=== PATIENT | male | born 1955 | race Caucasian/White ===

== ENCOUNTER 2016-09-29 10:55 | Emergency (ER) | payer OTHER ==
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
[~2016-09-29 10:55] MED LIST: AFRIN3 ML; LEVAQUIN750 M1 PO; ZOFRAN PO
[2016-09-29 13:11] LABS: BASOPHIL% 0.6 % (0-2.5); EOSINOPHIL% 0.5 % (0.0-7.0); HEMATOCRIT 49.5 % (38.0-50.0); HEMOGLOBIN 16.4 gm/dL (13.0-16.0); LYMPHOCYTE# 1.3 X10e3 (1.0-3.5); LYMPHOCYTE% 19.8 % (17.0-45.0); MEAN CELL VOLUME 94.9 FL (83-96); MEAN CORPUSCULAR HEMOGLOBIN 31.4 PG (28-34); MEAN CORPUSCULAR HGB CONC 33.1 g/dL (30-36); MEAN PLATELET VOLUME 7.3 FL (6.5-11.5); MONOCYTE# 0.7 X10e3 (0-1.0); MONOCYTE% 11.3 % (3.0-12.0); NEUTROPHIL# 4.3 X10e3 (1.5-7.1); NEUTROPHIL% 67.8 % (40-75); PLATELET COUNT 275 X10e3 (140-420); RED BLOOD COUNT 5.22 X10e (3.90-5.60); RED CELL DISTRIBUTION WIDTH 13.5 % (11.0-15.5); WHITE BLOOD COUNT 6.4 X10e3 (4.0-10.5)
[2016-09-29 13:19] LABS: DIFF IND NO
[2016-09-29 14:03] LABS: ALBUMIN SERUM 4.3 g/dL (3.5-5.0); BILIRUBIN, DIRECT 0.1 mg/dL (0.0-0.2); BILIRUBIN,INDIRECT 0.6 mg/dL (0.0-0.9); BILIRUBIN,TOTAL 0.7 mg/dL (0.2-2.0); BUN/CREATININE RATIO 16.66; CALCIUM SERUM 9.5 mg/dL (8.4-10.2); CREATININE SERUM 0.9 mg/dL (0.6-1.4); GLOM FILT RATE Estimated 92.5 mL/min (>60); POTASSIUM 4.4 mmol/L (3.5-5.1); PROTEIN TOTAL SERUM 8.1 g/dL (6.0-8.3)
[2016-10-20] MEDS ORDERED: AMANTADINE HCL100 MG PO (08:34)
[2016-10-20] MEDS ORDERED: GABAPENTIN300 MG PO (08:36)
[2016-10-20] MEDS ORDERED: CARBIDOPA-LEVO1 EAC5 PO (08:36)
[2016-10-20] MEDS ORDERED: AMLODIPINE BESYL5 MG PO (08:36)
== END 2016-09-29 17:00 | disposition home or self-care (01) ==
LOC: CED 10:55
PROVIDERS: Emergency Medicine
DX: K40.90 Unilateral inguinal hernia, without obstruction or gangrene, not specified as recurrent (principal); I10 Essential (primary) hypertension; G20 Parkinson's disease
CPT/HCPCS: 36415; 74177; 80048; 80076; 82150; 83690; 85025; 96374; 96375; 99284; J2270; J2405; Q9967

== ENCOUNTER → 2016-10-20 | Outpatient (CLI) | payer OTHER ==
[~2016-10-20] MED LIST changes: +AMANTADINE HCL100 MG PO; +AMLODIPINE BESYL5 MG PO; +CARBIDOPA-LEVO1 EAC5 PO; +GABAPENTIN300 MG PO
--- NOTE | ~2016-10-20 | EKG ---
PATIENT: RICA RODRIGUEZ UNIT #: [id number] Ventricular Rate: 99 BPM Atrial Rate: 100 BPM QRS Duration: 82 ms Q-T Interval: 348 ms QTC Calculation(Bezet): 446 ms Calculated R Menlo: 23 degrees Calculated T [place]: 15 degrees Diagnosis Line: Sinus tachycardia Diagnosis Line: Poor data quality Diagnosis Line: Nonspecific ST abnormality Diagnosis Line: Borderline ECG Diagnosis Line: No previous ECGs available Diagnosis Line: Confirmed by AIDAN WANG MD ([id number]) on 10/22/2016 Diagnosis Line: 8:14:05 AM INTERPRETING MD: KATHLEEN BOOTH
== END | disposition home or self-care (01) ==
LOC: CAMB 07:57
DX: Z01.810 Encounter for preprocedural cardiovascular examination (principal); K40.20 Bilateral inguinal hernia, without obstruction or gangrene, not specified as recurrent; K43.9 Ventral hernia without obstruction or gangrene
CPT/HCPCS: 93005

== ENCOUNTER → 2016-10-27 | Day surgery (SDC) | payer OTHER ==
--- NOTE | ~2016-10-27 | OR ---
Unit #: [id number] #: [id number] Patient: RICA RODRIGUEZ [id number] [address] [place], [place] [address] [id number] O MR#: [id number] NAME: RICA RODRIGUEZ ROOM: Date of Procedure: 10/27/2016 Admission Date: 10/27/2016 Surgeon: Chin Laughlin Jr., M.D. : 1955 Attending Physician: Chin Laughlin Jr., M.D. Primary Care Physician: [facility] OPERATIVE REPORT INDICATION FOR PROCEDURE The patient is a 61-year-old white male, recently presented to the office with evidence of bilateral inguinal hernias. He also was noted to have a hernia in the upper midline of the abdomen and was brought in this time for repair of all 3 of these laparoscopically. The patient understands the procedure including the risks, including that of recurrence, infection, and chronic pain, and bleeding and consents. PREOPERATIVE DIAGNOSES Bilateral inguinal hernias with an upper midline ventral hernia. POSTOPERATIVE DIAGNOSIS Bilateral inguinal hernias with an upper midline ventral hernia noting the bilateral inguinal hernias being direct. There were several deep small defects in the upper midline. ANESTHESIA General with endotracheal intubation and 0.5% Marcaine with epinephrine locally. PROCEDURE PERFORMED Bilateral extraperitoneal inguinal hernia repairs with ventral hernia repair using a 4 x 6 inch Ventralight mesh. DESCRIPTION OF PROCEDURE The patient was positioned in supine position. After being anesthetized and intubated, he was prepped and draped in routine fashion for laparoscopic ventral hernia repair and a bilateral inguinal hernia repairs. A small 0.5 cm incision was made in the right lateral abdominal wall and a 5-mm Optiview introduced into the abdomen. An 11-mm port was placed in the right lower quadrant abdominal wall area and using Endo Daisy, numerous adhesions were taken down in the midline along with fat being removed from several small defects as well as a larger defect approximately 4 to 5 cm in diameter. This was from previous surgery. After complete lysis of adhesions was performed, the lower abdomen was checked and there were bilateral direct inguinal hernias. The CO2 was then expressed from the abdomen. It was felt inguinal hernia should be repaired first. A 1.5 cm incision was made in the right of the lower midline. This was carried down to the fascia of the rectus muscle and the fascia was then scored with a #11 blade scalpel and the right rectus abdominis muscle was retracted laterally. A tunnel was performed and made with the Xiomy clamp and the dissecting balloon was placed and the Unit #: [id number] #: [id number] Patient: RICA RODRIGUEZ retroperitoneal space in the lower abdomen was then dissected with the balloon dissector. The balloon dissector was removed. The retracting device was then placed and there was reasonable space in the area for hernia repair. Two 0.5 cm incisions were made in the lower midline above the suprapubic area and just above the first incision and a 5-mm ports were placed, and dissection was carried out both on the right and the left with the peritoneum being pulled down from the cord structures and the space laterally being developed and the Familia ligament being exposed. The large 3D meshes were placed on the right and the left intact to the pubic tubercle with the spiral tacks and there was excellent coverage of the direct defects with no evidence of any major problems. The CO2 was then evacuated from the space and the ports removed and the fascia in the larger port site to the right of the rectus sheath was closed with interrupted [id number] 0 Vicryl suture. The wounds were irrigated and hemostasis achieved with Bovie cautery and the skin edges were approximated stainless-steel skin clips and skin stapling device. Additional 5-mm port was placed in the left upper and left lower quadrant abdominal wall areas under direct visualization and after the falciform was completely taken down along with the upper abdominal adhesions, the area was checked. There was no evidence of any significant bleeding and no evidence of any intraabdominal organ injury. A 6 x 4 inch Ventralight mesh was tacked in 4 corners, soaked in antibiotic solution, placed intra-abdominal and using the Endo Close needle, was brought up against the anterior abdominal wall with four 1 mm incisions being performed with excellent coverage of the defects. The mesh was tacked in place with SecureStrap. After it was completely tacked in place, the sutures holding it up were then lysed. There was excellent coverage. No evidence of any bleeding in any of the areas and at this point, the CO2 was expressed from the abdomen. The port sites were injected with 0.5% Marcaine with epinephrine and the fascia in the larger port site in the right lower quadrant abdominal wall area was closed with the neoClose technique. After this was complete and CO2 expressed from the abdomen, the wounds were irrigated. Hemostasis was achieved with Bovie cautery. The wound was injected with 0.5% Marcaine with epinephrine locally. The skin edges were approximated with stainless-steel skin clips and skin stapling device. Sterile dressings were applied externally. Estimated blood loss for the entire procedure less than 75 mL. The patient received less than 2000 mL crystalloid solution during the procedure. Sponges and instruments counts were correct x3. No drains used. No complications. The patient was taken to the recovery room with stable vital signs in satisfactory condition. Dictated by... Chin Laughlin Jr., MClaudia CONLEY/georges TD: 11/01/2016 11:23 JOB #: [id number] Unit #: [id number] #: [id number] Patient: RICA RODRIGUEZ OPERATIVE REPORT Page 1 of 1 X Chin Laughlin MD X PROCEDURE OPERATIVE NOTE
== END | disposition home or self-care (01) ==
LOC: CSUR 06:44
DX: K40.20 Bilateral inguinal hernia, without obstruction or gangrene, not specified as recurrent (principal); K43.9 Ventral hernia without obstruction or gangrene; G20 Parkinson's disease; J30.9 Allergic rhinitis, unspecified; I10 Essential (primary) hypertension; Z98.890 Other specified postprocedural states
CPT/HCPCS: C1781; J0330; J0690; J1100; J1885; J2250; J2405; J2710; J3010